=== PATIENT | male | born 1980 | race American Indian/Alaskan Native ===

== ENCOUNTER 2018-11-18 10:20 | Emergency (ER) | payer OTHER ==
[2018-11-18 10:34] VITALS: BP 143/95
--- NOTE | 2018-11-18 11:44 | Emergency Department Report ---
Blank Doc - Documentation Documentation: patient reports that his blood sugar was low last tuesday and was checked out by Senior Structural Engineer and they told him his BG is in the 40's.. He said he came here to be checked. He is asymptomatic. He wants a physical exam. Denies pain or SOB at present. DX: Low blood sugar in the past Here for check up Plan: bmp d/c home if BMP normal and refe to [place]
[2018-11-18 13:26] LABS: BUN/Creatinine Ratio 10; Blood Urea Nitrogen 9 mg/dL (9-20); Calcium 9.7 mg/dL (8.4-10.2); Hemolysis Index 21
--- NOTE | 2018-11-18 15:18 | Emergency Department Report ---
ED General Adult HPI - General Chief complaint: Medical Clearance Stated complaint: HYPOGLYCEMIA Time Seen by Provider: 11/18/18 12:57 Source: patient Mode of arrival: Ambulatory Limitations: No Limitations - History of Present Illness Initial comments: Patient is a 38-year-old -Chinese male who states that yesterday he was at work and started feeling very dizzy and was having problems speaking. Patient states that he hadn't eaten all yesterday and now 1 was called and it was noted that he had a blood sugar of 40. Patient is not diabetic. Patient was given some candy Coca-Cola and he started feeling better and he declined transport to the hospital. Patient's came in today to get checked out. Patient states that currently he feels fine but he does admit to sometimes has some intermittent dizziness and occasional tingling to his left hand and his left foot. - Related Data Allergies Allergy/AdvReac Type Severity Reaction Status Date / Time No Known Allergies Allergy Unverified 11/18/18 10:34 ED Review of Systems ROS: Stated complaint: HYPOGLYCEMIA Other details as noted in HPI Comment: All other systems reviewed and negative ED Past Medical Hx - Past Medical History Previous Medical History?: No - Surgical History Past Surgical History?: No - Social History Smoking Status: Never Smoker Substance Use Type: Alcohol ED Physical Exam - General Limitations: No Limitations General appearance: alert, in no apparent distress - Head Head exam: Present: atraumatic, normocephalic - Eye Eye exam: Present: normal appearance - ENT ENT exam: Present: mucous membranes moist - Neck Neck exam: Present: normal inspection - Respiratory Respiratory exam: Present: normal lung sounds bilaterally. Absent: respiratory distress, wheezes, rales, rhonchi - Cardiovascular Cardiovascular Exam: Present: regular rate, normal rhythm. Absent: systolic murmur, diastolic murmur, rubs, gallop - GI/Abdominal GI/Abdominal exam: Present: soft, normal bowel sounds. Absent: distended, tenderness, guarding, rebound - Rectal Rectal exam: Present: deferred - Extremities Exam Extremities exam: Present: normal inspection - Back Exam Back exam: Present: normal inspection - Neurological Exam Neurological exam: Present: alert, oriented X3 - Psychiatric Psychiatric exam: Present: normal affect, normal mood - Skin Skin exam: Present: warm, dry, intact, normal color. Absent: rash ED Course Vital Signs 11/18/18 10:33 Temperature 98.0 F Pulse Rate 61 Respiratory 16 Rate Blood Pressure 143/95 [Left] O2 Sat by Pulse 97 Oximetry ED Medical Decision Making - Lab Data Result diagrams: 11/18/18 12:56 - Medical Decision Making Patient's glucose is normal here today. Patient has no primary care physician will be given because of leave the patient will need some further evaluation for prediabetes. Patient also states he is a heavy drinker and his heavy alcohol use could also be leading to bouts of hypoglycemia. Patient be discharged home to time Critical care attestation.: If time is entered above; I have spent that time in minutes in the direct care of this critically ill patient, excluding procedure time. ED Disposition Clinical Impression: Hypoglycemia Disposition: DC-01 TO HOME OR SELFCARE Is pt being admited?: No Does the pt Need Aspirin: No Condition: Stable Instructions: Non-diabetic Hypoglycemia (ED) Additional Instructions: In addition to prediabetes, hypoglycemia or a low blood sugar can also come from heavy alcohol use. When you do drink please make sure that she eat. Referrals: [place] JOHN [Primary Care Provider] - 3-5 Days NIDIA ADAME MD [Staff Physician] - 3-5 Days Time of Disposition: 15:18
== END 2018-11-18 15:20 | disposition home or self-care (01) ==
LOC: ED 10:20
DX: E16.2 Hypoglycemia, unspecified (principal)
CPT/HCPCS: 36415; 80048; 82962; 99283